=== PATIENT | female | born 1960 | race Caucasian/White ===

== ENCOUNTER → 2017-10-31 11:54 | Outpatient (CLI) | payer OTHER, SELFPAY ==
[2017-10-31 16:02] LABS: Absolute Neutrophil Count 3.5 X10^3/uL (2.0-7.7); Basophil# 0.02 X10^3/uL; Basophil% 0.3 % (0-1); Eosinophil# 0.13 X10^3/uL; Eosinophils% 1.9 % (0-5); Hematocrit 43.4 % (37-47); Hemoglobin 14.3 g/dl (12.0-15.0); Lymphocyte % 39.5 % (19-41); Mean Corp Hgb Conc 32.9 g/gl (32-36); Mean Corpuscular Hgb 28.7 pg (27.0-32.0); Mean Platelet Vol. 9.8 fl (6.2-12.0); Monocyte# 0.45 X10^3/uL; Monocyte% 6.6 % (0-10); Neutrophil # 3.53 X10^3/uL (2.7-7.7); Neutrophil % 51.6 % (47-70); Platelet Count 249 K/mm3 (150-450); RBC Distribution Width SD 41.2 fl (35.1-43.9); Red Blood Count 4.99 M/mm3 (4.2-5.4); White Blood Count 6.8 K/mm3 (4.4-11.0)
[2017-10-31 16:03] LABS: POSITIVE COUNT NO; POSITIVE DIFFERENTIAL NO; POSITIVE MORPHOLOGY NO
[2017-10-31 16:19] LABS: T3 Total - Triiodothyronine 1.31 ng/mL (0.6-1.81)
[2017-10-31 16:22] LABS: ALB/GLOB Ratio 1.1 RATIO (0.9-2.4); AST(SGOT) 23 U/L (15-37); Alanine Aminotransfer ALT/SGPT 31 U/L (13-56); Albumin, Serum 3.8 g/dL (3.2-5.0); Alkaline Phosphatase 100 U/L (45-117); Anion Gap 9 (5-15); BUN 13 mg/dL (7-18); BUN/Creat Ratio 19.1 RATIO (10-20); Calcium,Total 8.8 mg/dL (8.5-10.1); Chloride 108 mmol/L (98-107); Cholesterol 131 mg/dL (200); Creatinine, Serum 0.68 mg/dL (0.55-1.02); EST Glomerular Filtration Rate 95 mL/min (>60); Est Glom Filt Rate - Afr Amer 115 mL/min (>60); Ferritin 58 ng/mL (8-252); Free T3 2.8 pg/mL (2.18-3.98); Globulin 3.6 g/dL (2.2-4.2); Glucose 86 mg/dL (74-106); High Density Lipoprotein 37 mg/dL; Potassium 4.1 mmol/L (3.5-5.1); Protein, Total 7.4 g/dL (6.4-8.2); Sodium Level 143 mmol/L (136-145); T4 Free Direct 1.19 ng/dL (0.76-1.46); T4 Total, Thyroxin 9.3 ug/dL (4.8-13.9); Thyroid Stim Hormone (TSH) < 0.01 uIU/mL (0.358-3.74); Triglycerides 59 mg/dL; Very Low Density Lipoprotein 12 mg/dL (5-40)
== END ==
PROVIDERS: Family Provider Family Medicine; PCP Family Medicine; Visit Provider Family Medicine
DX: Z00.00 Encounter for general adult medical examination without abnormal findings (principal); E03.2 Hypothyroidism due to medicaments and other exogenous substances; E61.1 Iron deficiency
CPT/HCPCS: 36415; 80053; 80061; 82728; 84436; 84439; 84443; 84480; 84481; 85025

== ENCOUNTER → 2023-08-11 | Outpatient (CLI) | payer OTHER, SELFPAY ==
--- OUTSIDE RECORDS SUMMARY | 2023-08-11 09:52 | XMS RPT_ITS | CCD ---
Author Name Unknown Address [address] [facility] [address] [place] [address] Organization [facility] Care Team Providers Care Fire Boat Engineer Name Role Phone Julieth Miller Primary Care Provider [phone] JULIETH MILLER Primary Care Unavailable SG QUIÑONES Attending Unavailable JULIETH MILLER Primary Care Unavailable Medications Current Medications Medication Drug Class(es) Dates Sig (Normalized) Sig (Original) acetaminophen 325 mg / HYDROcodone bitartrate 5 mg oral tablet (2 sources) Opioid Agonist Start: 01-27-2016 HYDROcodone-acet aminophen (NORCO) 5-325 MG per tablet TAKE 1 TABLET EVERY 4 TO 6 HOURS NEEDED FOR PAIN 0 01/27/2016 Active ketorolac tromethamine 10 mg oral tablet (2 sources) Nonsteroidal Anti-inflammatory Drug, Cyclooxygenase Inhibitor Start: 03-19-2020 take 1 tablet by mouth every six hours as needed for pain ketorolac (TORADOL) 10 MG tablet Take 1 tablet by mouth every 6 hours as needed for Pain 20 tablet 0 03/19/2020 Active Problems Active Problems Problem Classification Problem Date Documented Da te Episodic/Chronic Complications of surgical procedures or medical care (2 sources) Postablative hypothyroidism; Translations: [Postablative hypothyroidism] Onset: 03-19-2016 03-19-2016 Chronic Fracture of lower limb (1 source) Closed fracture of fifth metatarsal bone; Translations: [Nondisplaced fracture of fifth metatarsal bone, left foot, initial encounter for closed fracture] Episodic Other connective tissue disease (1 source) Myalgia, other site; Translations: [Myalgia, other site] Onset: 05-10-2023 Episodic Thyroid disorders (2 sources) Hypothyroidism; Translations: [Hypothyroid] Onset: 09-16-2012 03-07-2016 Chronic Past or Other Problems Problem Classification Problem Date Documented Da te Episodic/Chronic Nonspecific chest pain (1 source) Other chest pain; Translations: [Other chest pain] Onset: 05-24-2022 Episodic Results Test Name Value Interpretation Reference Range Facil ity Vital Signs Date Time Vital Sign Value Performing Clinician Faci lity 03-19-2020 12:56-0400 BMI (Body Mass Index) 26.96 kg/m2 Sg Ernst [facility] 03-19-2020 12:56-0400 Body Temperature 97.9 [degF] [facility] [place] 03-19-2020 12:56-0400 [facility] 73.[facility] [place] 03-19-2020 12:56-0400 BP Diastolic 83 mm[Hg] [facility]g [employer] [facility] , [place] 03-19-2020 12:56-0400 BP Systolic 172 mm[Hg] [facility] [place] 03-19-2020 12:56-0400 Height 165.1 cm [employer] [place], [place] 03-19-2020 12:56-0400 Pulse (Heart Rate) 70 /min [facility] [place] 03-19-2020 12:56-0400 Pulse Oximetry 99 % [facility] [place] 03-19-2020 12:56-0400 Respiratory Rate 18 /min [place] Encounters Encounter Date Encounter Type Care Provider Facility Start: 05-10-2023 End: 05-10-2023 Emergency department patient visit [facility] Start: 05-24-2022 End: 05-24-2022 Emergency department patient visit [facility] Start: 03-19-2020 End: 03-19-2020 Emergency department patient visit Sg Quiñones Work Phone: [facility] ED Procedures Date Procedure Procedure Detail Performing Clinician Start: 12-27-2019 Assay of free thyroxine Work Phone: Start: 12-27-2019 Assay of thyroid sti mulating hormone tsh Work Phone: Start: 12-27-2019 Assay of triiodothyr onine t3 free Juan A Gilmore Work Phone: Plan of Treatment Date Care Activity Detail Author Start: 08-21-2021 Lipid panel Lipid screen [place], [place] Start: 12-26-2020 TSH Qn TSH testing [place], [place] Start: 02-22-2020 Influenza vaccination M [place], [place] Start: 02-20-2019 TSH Qn TSH testing [place], [place] Start: 09-01-2016 Screening for malign ant neoplasm of breast Breast cancer screen [place], [place] Start: 01-07-2015 Screening for malign ant neoplasm of cervix Cervical cancer screen [place] Start: 05-28-2014 Diabetes screen Diabetes screen [employer], [place] Start: 2011 Screening for malign ant neoplasm of colon Colon cancer screen colonoscopy [place], [place] Start: 2011 Shingles Vaccine (1 of 2) Shingles Vaccine (1 of 2) [place] Start: 01-10-1980 DTaP/Tdap/Td vaccine (1 - Tdap) DTaP/Tdap/Td vaccine (1 - Tdap) [place] Start: 01-10-1976 HIV screening HIV screen [place], [place] Start: 1960 Hepatitis C screening Hepatitis C sc reen [place] End: 12-27-2019 Thyroid Peroxidase Antibody Thyroid Peroxidase Antibody Lab Routine Once for 1 Occurrences starting 12/27/2019 until 12/27/2019 [place] Payers Date Payer Category Payer Unknown [id number] 2014 Private Health Insurance [facility] CIG NA CIGNA PPO xxxxxxxxxxx 2014-Present [phone] [address] [facility] [place] [id number] xxxxxxxxxxx [id number] 2010 Private Health Insurance [facility] [id number] 1960 Unknown [id number] 1960 Unknown [id number] Social History Date Type Detail Facility Start: 08-16-2017 End: 03-19-2020 Tobacco smoking status NHIS Former smoker [place] End: 09-21-2010 History of tobacco use Current sm[place] Start: 03-19-2020 Tobacco use and exposure Never used [place] Start: 08-16-2017 End: 03-19-2020 Alcohol intake Current non-drinker of alcohol (finding) [place] Sex Assigned At Not on file [place] Exposure to SARS-CoV -2 (event) Not sure [place] Discharge Instructions * Attachments The following attachments cannot be sent through Care Everywhere. * Fifth Metatarsal Fracture: Rehab Exercises (Thai) * Metatarsal Fracture (Thai) documented in this encounter Assessments Diagnosis Nondisplaced fracture of fifth metatarsal bone, left foot, initial encounter for closed fracture Advance Directives No Advanced Directives Records FoundDocuments on File Type Date Recorded Patient Vp Software Support Expl anation ACP-Advance Directive ACP-Power of Pulverizer Tender Documents on File Type Date Recorded Patient Vp Software Support Expl anation Advance Directives and Living Will Power of Pulverizer Tender Summary Purpose Family History No Family History Records Found Additional Source Comments Reason for Visit (unrecogniz ed section and content) INFORMATION SOURCE (unrecogn ized section and content) FOR RECORDS PERTAINING TO PATIENTS WHO ARE OR HAVE BEEN ENROLLED IN A CHEMICAL DEPENDENCY/SUBSTANCEABUSE PROGRAM, SOME INFORMATION MAY BE OMITTED. This clinical summary was aggregated from multiple sources. Caution should be exercised in using it in the provision of clinical care. This summary normalizes information from multiple sources, and as a consequence, information in this document may materially change the coding, format and clinical context of patient data. In addition, data may be omitted in some cases. CLINICAL DECISIONS SHOULD BE BASED ON THE PRIMARY CLINICAL RECORDS. [employer] provides no warranty or guarantee of the accuracy or completeness of information in this document.
[2023-08-11 10:28] LABS: Absolute Lymphocyte Count 2.57 X10^3/uL (0.83-4.51); Absolute Neutrophil Count 3.7 X10^3/uL (2.0-7.7); Basophil# 0.09 X10^3/uL; Basophil% 1.3 % (0-1); Eosinophil# 0.21 X10^3/uL; Eosinophils% 2.9 % (0-5); Hematocrit 47.1 % (37-47); Hemoglobin 14.9 g/dL (12.0-15.0); Lymphocyte # 2.57 X10^3/ul (0.83-4.51); Lymphocyte % 35.7 % (19-41); Mean Corp Hgb Conc 31.6 g/dL (32-36); Mean Corpuscular Hgb 27.9 pg (27.0-32.0); Mean Corpuscular Volume 88.2 fL (81-99); Mean Platelet Vol. 9.6 fl (6.2-12.0); Monocyte# 0.56 X10^3/uL; Monocyte% 7.8 % (0-10); NRBC Flagged by Analyzer 0 % (0-5); Neutrophil # 3.74 X10^3/uL (2.7-7.7); Platelet Count 291 K/mm3 (150-450); RBC Distribution Width CV 13.2 % (11.6-14.6); RBC Distribution Width SD 42.6 fl (35.1-43.9); Red Blood Count 5.34 M/mm3 (4.2-5.4); White Blood Count 7.2 K/mm3 (4.4-11.0)
[2023-08-11 10:55] LABS: Vitamin B12 304 pg/mL (211-911)
[2023-08-11 11:21] LABS: ALB/GLOB Ratio 0.9 RATIO (0.9-2.4); AST(SGOT) 18 U/L (15-37); Alanine Aminotransfer ALT/SGPT 28 U/L (13-56); Albumin, Serum 3.7 g/dL (3.2-5.0); Alkaline Phosphatase 113 U/L (45-117); Anion Gap 5 (5-15); BUN 20 mg/dL (7-18); BUN/Creat Ratio 22.2 RATIO (10-20); Calcium,Total 9.2 mg/dL (8.5-10.1); Chloride 110 mmol/L (98-107); Cholesterol 192 mg/dL (200); EST Glomerular Filtration Rate 67 mL/min (>60); Est Glom Filt Rate - Afr Amer 81 mL/min (>60); Ferritin 35 ng/mL (8-252); Globulin 3.9 g/dL (2.2-4.2); Glucose 116 mg/dL (74-106); High Density Lipoprotein 43 mg/dL; Iron 89 ug/dL (50-170); Potassium 3.9 mmol/L (3.5-5.1); Protein, Total 7.6 g/dL (6.4-8.2); Sodium Level 139 mmol/L (136-145); T4 Free Direct 0.96 ng/dL (0.76-1.46); Thyroid Stim Hormone (TSH) < 0.01 uIU/mL (0.358-3.74); Triglycerides 63 mg/dL; Very Low Density Lipoprotein 13 mg/dL (5-40)
== END | disposition home or self-care (01) ==
PROVIDERS: PCP Family Medicine; Referring Provider Family Medicine; Visit Provider Family Medicine
DX: Z00.00 Encounter for general adult medical examination without abnormal findings (principal); E03.2 Hypothyroidism due to medicaments and other exogenous substances; D64.9 Anemia, unspecified; E61.8 Deficiency of other specified nutrient elements
CPT/HCPCS: 36415; 80053; 80061; 82607; 82728; 83540; 84439; 84443; 85025

== ENCOUNTER → 2024-09-17 | Outpatient (CLI) | payer OTHER, SELFPAY ==
[2024-09-17 13:10] LABS: Free T3 2.6 pg/mL (2.18-3.98); Thyroid Stim Hormone (TSH) 0.049 uIU/mL (0.300-4.200)
== END | disposition home or self-care (01) ==
PROVIDERS: PCP Family Medicine; Referring Provider Family Medicine; Visit Provider Family Medicine
DX: E03.2 Hypothyroidism due to medicaments and other exogenous substances (principal)
CPT/HCPCS: 36415; 84439; 84443; 84481

== ENCOUNTER 2024-11-05 05:49 | Day surgery (SDC) | payer OTHER, SELFPAY ==
[2024-11-05] VITALS (7 sets, daily range): BP systolic 132–155; BP diastolic 67–74; PULSE 80–107; RESP 15–20; TEMP 36.1–37.1; O2SAT 90–98; BMI 27.3
[2024-11-05] MEDS: Lactated Ringers 1,000 ML 15 ML IV (06:26)
--- NOTE | 2024-11-05 06:41 | PRE.ANES_ITS ---
ASA Classification* ASA Classification ASA Classification: 2 Assessment & Plan Anesthesia* Anesthesia Assessment Anesthesia Assessment: Discussed sedation and/or anesthesia options, risks, benefits, and alternatives with patient/parents/legal guardian/POA. Questions invited. The patient/parents/legal guardian/POA seems to understand and agrees to proceed with anesthesia plan. Reviewed the physical assessment, medical history, allergy history and patient home medications list prior to surgery/procedure/anesthetic and documented any changes. Performed airway and anesthesia risk assessments. Anesthesia Type Anesthesia Type: General Anesthesia Focused Assessment* Temperature: 98.7 F Pulse Rate: 80 Blood Pressure: 155/69 Respiratory Rate: 16 Pulse Ox: 98 Airway Assessment Mouth opens: >3 cm Mallampati Score: II Focused Labs Anesthesia Preop lab: CBC WBC 7.2 K/mm3 (4.4-11.0) 08/11/23 09:35 08/11/23 RBC 5.34 M/mm3 (4.2-5.4) 08/11/23 09:35 08/11/23 Hgb 14.9 g/dL (12.0-15.0) 08/11/23 09:35 08/11/23 Hct 47.1 % (37-47) H 08/11/23 09:35 08/11/23 Plt Count 291 K/mm3 (150-450) 08/11/23 09:35 08/11/23 CHEMISTRY Potassium 3.9 mmol/L (3.5-5.1) 08/11/23 09:35 08/11/23 Sodium 139 mmol/L (136-145) 08/11/23 09:35 08/11/23 BUN 20 mg/dL (7-18) H 08/11/23 09:35 08/11/23 Creatinine 0.90 mg/dL (0.55-1.02) 08/11/23 09:35 08/11/23 Glucose 116 mg/dL (74-106) H 08/11/23 09:35 08/11/23 TSH 0.049 uIU/mL (0.300-4.200) L 09/17/24 08:33 COAG Pre-Assessment Diagnosis/Proposed Procedure Planned Operative Procedure(s): EXCISION CYST LEFT UPPER LIP Anesthesia History 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 When Was Last Pacemaker Check QUESTION #4 FULL TEXT: You/Your Family Experience fever (hyperthermia) with Anesthesia Last Oral Intake Last Oral intake: Last Oral Intake NPO since 00:00 11/05/24 06:20 Meds taken in AM with sips of No 11/05/24 06:20 water? Meds patient instructed to take am of surgery PONV PONV - separator operator shellfish meats: PONV - separator operator shellfish meats Female Yes 11/04/24 10:17 HX of Motion Sickness Yes 11/04/24 10:17 HX of N/V After Surgery No 11/04/24 10:17 Non-Smoker Yes 11/04/24 10:17 Duration of Surgery greater Yes 11/04/24 10:17 than 60 minutes Number of Risk Factors 4 11/04/24 10:17 PONV Score Severe Risk 11/04/24 10:17 Height & Weight Height & Weight: Anesthesia: Height & Weight Height 5 ft 5 in 11/05/24 06:20 Weight: 74.389 kg 11/05/24 06:20 Body Mass Index (BMI) 27.3 11/05/24 06:20 Respiratory Assessment Respiratory Assessment - separator operator shellfish meats: Respiratory Tract Infection Hx - separator operator shellfish meats Hx Respiratory Tract Infection No 11/04/24 10:17 STOP Sleep Apnea STOP Sleep Apnea - separator operator shellfish meats: STOP Sleep Apnea - separator operator shellfish meats Hx Hypertension No 11/04/24 10:17 Hx Sleep Apnea No 11/04/24 10:17 CPAP BIPAP Do you snore loudly (louder No 11/04/24 10:17 than talking or can be heard Do you often feel tired/ No 11/04/24 10:17 fatigued/ sleepy during daytime? Has anyone observed you stop No 11/04/24 10:17 breathing during sleep? STOP Results Negative 11/04/24 10:17 QUESTION #5 FULL TEXT : Do you snore loudly (louder than talking or can be heard through closed doors)? 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 Specify any problems Hx of Preganancy in last 3 No 11/04/24 10:17 Months Nurse Filling Out Transfusion DSCHRIBER 11/04/24 10:17 & Questions: Date: 11/04/24 11/04/24 10:17 Time: 10:18 11/04/24 10:17 Patient unable to answer at this time (ie. confused, unrespo /Reproduction History /Reproductive History - separator operator shellfish meats: /Reproductive Hx- separator operator shellfish meats Hx Now No 11/04/24 10:17 Gestational Age (in weeks): EDC: Hx Hx Para Hx Section SAB No 11/04/24 10:17 Active Medications Active Medications: Current Medications Generic Name Dose Route Start Last Admin Trade Name Freq PRN Reason Stop Dose Admin Cefazolin Sodium 2 gm/ Sodium 110 mls @ 150 mls/hr 11/05/24 07:30 Chloride IV 11/05/24 08:13 INTRAOP ONE Lactated Ringer's 1,000 mls @ 15 mls/hr 11/05/24 06:00 11/05/24 06:26 IV 15 mls/hr .Q48H ENIO Administration PFSH Medical History Wears glasses Wears dentures Post-menopausal Alcohol use Non-smoker Thyroid disease Home Medications ?Medication ?Instructions ?Recorded ?Last Taken ?Type thyroid (pork) 120 mg tablet (CULINARY INSTRUCTOR 120 mg PO QDAY 11/04/24 History Thyroid) Allergy/AdvReac Type Severity Reaction Status Date / Time No Known Allergies Allergy Verified 11/05/24 06:19 Family History (Updated 11/03/24 @ 09:22 by Tiffanie Arrington) Other Thyroid disorder Surgical History (Updated 11/04/24 @ 10:21 by Macrina Blood) Hx of oral surgery Social History (Updated 11/03/24 @ 09:22 by Tiffanie Arrington) Smoking Status: Never smoker alcohol intake: never substance use type: does not use additional social history: pt denies aspirin, denies ibuprofen use, denies vaping, denies marijuana, denies edibles. Review of Systems (Anesthesia) ROS Narrative System reviewed and no additional complaints, except as documented.
--- NOTE | 2024-11-05 07:14 | PCM.HP.BLA ---
History and Physical Date of Admission: 11/05/24 The patient is examined and there are no changes to the H&P dated 11/04/2024. The patient presents with a nodular lesion of the left upper lip. She presents for excision of the neoplasm and submission for pathologic evaluation. She is marked in the preop holding area. Informed consent is obtained. 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
[2024-11-05] MEDS: Cefazolin 2 GM in 0.9% Normal Saline (100mL Bag) 100 ML IV (07:25)
--- NOTE | 2024-11-05 07:30 | LES_PTH ---
PATIENT: ALY CHILEL [place] [facility] [place][id number] AGE/SX: 64/F ROOM: RE11/05/[address]: Dr. Phyllis Albert MD : 1960 BED: DIS: 11/05/2024 SPEC #: [id number] RECD: 11/05/24 08:46 STATUS: SABRA KASI #: [id number] DANIELA: 11/05/24 07:[address]: Phyllis Albert DEPT: SURGICAL PATHOLOGY RECD BY: Sam Mayberry ENTERED: 11/05/24 10:14 SP TYPE: Lesion OTHR DR: Dr. 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 Skin, left upper lip, neoplasm, excision: * Dilated pore of Alon. MICROSCOPIC DESCRIPTION Slides are reviewed. GROSS DESCRIPTION A. Received in formalin in a container labeled with the patient's name, date of , and neoplasm left upper lip is an unoriented elliptical skin excision measuring 0.9 x 0.4 cm with a depth up to 0.7 cm. The possible epidermis is white-grijalva with a 0.2 x 0.1 cm indented focus situated 0.2 cm from the peripheral margin. The opposing probable deep margin is inked green, and sectioning reveals an ill-defined 0.4 x 0.3 x 0.3 cm possible cystic structure filled with white friable material. The remaining cut surfaces are white-grijalva and unremarkable. Submitted entirely as follows:A1. Tips, en faceA2. Midportion of specimen [facility] 11-08-2024 CPT:51438
[2024-11-05] MEDS: Lidocaine 1% /Epi 1:100 (20ml) 20 ML Vial (07:52)
--- NOTE | 2024-11-05 08:19 | EX.PCM.DISCH ---
Discharge Instructions Dressing / Incision Additional Dressing/Incision Instructions:: Keep the tape dry. Do not remove the tape until seen in the office. Avoid stretching or pulling the area until seen in the office. Take the oral antibiotic (Keflex) 2 times a day until finished. Keep your back elevated (recliner position) for the next 3-4 nights to reduce swelling and bruising. Follow Up Care Please Follow Up With: Phyllis Albert MD When: 1 to 2 weeks Test Results: Test results from this visit will be discussed in further detail at your follow-up appointment, if applicable. Discharge Plan Admission Attending Provider: Phyllis Albert Primary Care Provider: Roosevelt Miller Instructions Print Language: Solomon Islander Discharge Orders/Prescriptions Prescriptions: New cephalexin 500 mg capsule 500 mg PO BID 5 Days Qty: 10 0RF No Action thyroid (pork) [ELEVATOR TROUBLESHOOTER Thyroid] 120 mg tablet 120 mg PO QDAY Referrals / Follow Up: Roosevelt Miller DO [Primary Care Provider] - Disposition Disposition (needs filled in before D/C Order can be placed): Home, Self Care
--- NOTE | 2024-11-05 08:22 | OP.PCM_ITS ---
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: Operative Report (Standard) Operative Information Date of Procedure: 11/05/24 Pre-Operative Diagnosis: Neoplasm left upper lip Post-Operative Diagnosis: The same Surgery/Procedure Performed: Excision subcutaneous neoplasm left upper lip (1.75 cm) collection systems modeler: Yes Rn Pediatric Icu: Betsy Anguiano Tasks completed by bilingual sales assistant: Retracting Type of Anesthesia: General RN Documented Start/Stop Times: Operation Date: 11/05/24 07:30 Case Time Into Pre-Op 11/05/24 05:54 Out of Pre-Op 11/05/24 07:20 Anesthesia Start 11/05/24 07:25 Into Room 11/05/24 07:25 Procedure Start 11/05/24 07:52 Procedure End 11/05/24 08:15 Anesthesia End 11/05/24 08:21 Out of Room 11/05/24 08:21 Procedure Start Time: 07:52 Procedure Stop Time: 08:15 Select all DRAINS/GRAFTS/IMPLANTS that apply: None Estimated Blood Loss: Minimal Specimen collected: Yes Description of specimen(s) removed: Neoplasm left upper lip Description of surgery: The patient presents with a neoplasm of the left upper lip which she states she periodically squeezes. She presents for excision of the neoplasm with submission for pathologic evaluation. The patient is marked in the preop holding area. An informed consent is obtained. The patient brought to the operating room and placed under general anesthesia. Care is taken to pad all pressure points, apply a warming blanket, and sequential compression stockings. The face is prepped and draped in the usual sterile fashion. We initially began with injecting the periphery of the site with 1% Xylocaine with epinephrine. Following this, an incision is made at the apex of the neoplasm. Careful subcutaneous dissection is performed to remove the site. The mass is removed intact. Hemostasis is controlled with cautery. The wound is then closed in layers using a Vicryl suture in the subcutaneous tissue and dermis. Skin edges are approximated with a running subcuticular Vicryl suture. Dermabond and Steri-Strips are placed on the site. She tolerated the procedure well was taken to the recovery area in an awake and stable condition. Needle and sponge counts are correct. Surgical Findings: As above Complications Complications: No Admit VTE Documentation VTE Mechan Device Prophylaxis: SCD's
--- NOTE | 2024-11-05 08:29 | PCM.POST.ANE ---
Anesthesia: Postop Eval I Current Vital Signs Temperature: 97 F Pulse Rate: 107 Blood Pressure: 133/74 Respiratory Rate: 20 Pulse Ox: 95 Oxygen Delivery Method: Room Air Assessment Airway patent: Yes Spontaneous unlabored respirations: Yes Mental status: Awake nausea: No Vomiting: No Anesthesia Complication: No Fluid Hydration Crystalloid volume administer (ml): 900 Total IV fluid infused: 900 Progress Note Anesthesia document: Postop Eval 1 completed: Yes
--- NOTE | 2024-11-05 09:02 | POSTOPAN2_ITS ---
Anesthesia Postop Eval I Sum Postop Eval Completion status Anesthesia document: Postop Eval 1 completed: Yes Anesthesia Postop Eval I Summary Anesthesia Postop Eval I Summary: Anesthesia Postop Eval I: Assessment Summary Airway patent Yes 11/05/24 08:30 COMPANY [email or web address] Spontaneous unlabored Yes 11/05/24 08:30 COMPANY [email or web address] respirations Mental status Awake 11/05/24 08:30 COMPANY [email or web address] nausea No 11/05/24 08:30 COMPANY [email or web address] Vomiting No 11/05/24 08:30 COMPANY [email or web address] Anesthesia Postop Eval I: Fluid Summary Crystalloid volume administer 900 11/05/24 08:30 COMPANY [email or web address] (ml) Colloids volume administered ( ml) Blood Product volume administered (ml) Total IV fluid infused 900 11/05/24 08:30 COMPANY [email or web address] Anesthesia Postop Eval I: Summary Notes Anesthesia Complication No 11/05/24 08:30 COMPANY [email or web address] Anesthesia Complication Comment: Post-operative progress note Anesthesia: Postop Eval II Evaluation Mental status: Awake Pain Level: 0 nausea: No Vomiting: No
--- NOTE | 2024-11-05 09:02 | PCM.POSTANE2 ---
Anesthesia Postop Eval I Sum Postop Eval Completion status Anesthesia document: Postop Eval 1 completed: Yes Anesthesia Postop Eval I Summary Anesthesia Postop Eval I Summary: Anesthesia Postop Eval I: Assessment Summary Airway patent Yes 11/05/24 08:30 HEATER PLANER [email or web address] Spontaneous unlabored Yes 11/05/24 08:30 HEATER PLANER OPERATOR.[email or web address] respirations Mental status Awake 11/05/24 08:30 HEATER PLANER OPERATOR.[email or web address] nausea No 11/05/24 08:30 HEATER PLANER OPERATOR.[email or web address] Vomiting No 11/05/24 08:30 HEATER PLANER OPERATOR.[email or web address] Anesthesia Postop Eval I: Fluid Summary Crystalloid volume administer 900 11/05/24 08:30 HEATER PLANER OPERATOR.JDEF (ml) Colloids volume administered ( ml) Blood Product volume administered (ml) Total IV fluid infused 900 11/05/24 08:30 HEATER PLANER OPERATOR.JDEF Anesthesia Postop Eval I: Summary Notes Anesthesia Complication No 11/05/24 08:30 HEATER PLANER OPERATOR.JDEF Anesthesia Complication Comment: Post-operative progress note Anesthesia: Postop Eval II Evaluation Mental status: Awake Pain Level: 0 nausea: No Vomiting: No
== END 2024-11-05 09:31 | disposition home or self-care (01) ==
LOC: SDC 05:49 → AC 05:51
PROVIDERS: PCP Family Medicine; Referring Provider Plastic Surgery; Visit Provider Plastic Surgery
PROC: (CPT 11642; principal; 2024-11-05 07:20)
DX: D48.19 Other specified neoplasm of uncertain behavior of connective and other soft tissue (principal)
CPT/HCPCS: 11642; 00300; 88305; J2405